=== PATIENT | female | born 1945 | race Caucasian/White ===

== ENCOUNTER 2017-05-09 18:17 | Inpatient (IN) | payer MEDICARE, OTHER ==
[~2017-05-09] VITALS: Ht 167.6 cm; Wt 104.1 kg
[2017-05-09] MEDS ORDERED: SODIUM CHLORIDE 0.9% 1,000 ML IV ONE (18:22)
[2017-05-09] MEDS ORDERED: IPRATROPIUM BROM 0.5 MG/2.5ML INH SOL HHN ONE (18:30)
[2017-05-09] MEDS ORDERED: ALBUTEROL SULF 2.5 MG/0.5ML(0.5%) NEB SOLN HHN ONE (18:30)
[2017-05-09] MEDS ORDERED: methylPREDNISolone SOD SUCC 125 MG/2 ML VL IV ONE (18:30)
[2017-05-09] MEDS ORDERED: NITROGLYCERIN 0.4 MG SL TAB SL ONE ×2 (18:45→19:15)
[2017-05-09] MEDS ORDERED: LORazepam 2MG/ML-1ML VIAL IV ONE ×2 (18:45→21:30)
[2017-05-09] MEDS ORDERED: FUROSEMIDE 40 MG/4 ML VIAL ONE (19:08)
[2017-05-09 19:09] LABS: Basophils # (auto) 0 uL; Basophils % (auto) 0.3 % (0.0-2.0); Eosinophils # (auto) 0.2 uL; Eosinophils % (auto) 1.1 % (0.0-7.0); Hematocrit 45.7 % (36.0-46.0); Hemoglobin 14.4 g/dL (12.2-16.2); Lymphocytes # (auto) 7.4 uL; Lymphocytes % (auto) 49.4 % (10.0-50.0); Mean Corpuscular Hemoglobin 30.7 pg (28.0-32.0); Mean Corpuscular Hgb Conc. 31.6 g/dL (32.0-36.0); Mean Corpuscular Volume 96.9 fL (80.0-100.0); Monocytes # (auto) 1.1 uL; Monocytes % (auto) 7.4 % (0.0-12.0); Neutrophils # (auto) 6.3 uL; Neutrophils % (auto) 41.8 % (37.0-80.0); Nucleated Red Blood Cells % 0.1 %; Platelet Count (auto) 331 10^3/uL (140-450); Red Blood Cells 4.71 10^6/uL (4.0-5.20); Red Cell Distribution Width 14.9 % (11.8-14.3)
[2017-05-09 19:27] LABS: Albumin 2.9 g/dL (3.4-5.0); BUN/Creatinine Ratio 13.5; Calcium 8.6 mg/dL (8.5-10.1); Magnesium 2.1 mg/dL (1.6-2.6); Potassium 4.7 mmol/L (3.5-5.1)
[2017-05-09 19:29] LABS: Lactic Acid w/Reflex 6.4 mmol/L (0.4-2.0)
[2017-05-09 19:32] LABS: Bilirubin, Total 0.3 mg/dL (0.2-1.0); Total Protein 7.5 g/dL (6.4-8.2)
[2017-05-09] MEDS ORDERED: LEVOFLOXACIN 500MG 100 ML IV ONE (20:00)
[2017-05-09] MEDS ORDERED: MORPHINE SULF INJ 2 MG/ML SYRINGE 1ML IV PRN (22:15)
[2017-05-09] MEDS ORDERED: ONDANSETRON HCL 4 MG/2 ML VIAL IV PRN (22:15)
[2017-05-09] MEDS ORDERED: ACETAMINOPHEN 325 MG TAB PO PRN (22:15)
[2017-05-09] MEDS ORDERED: HYDROcodone-ACET 5/325MG TAB PO PRN (22:15)
[2017-05-09 22:41] VITALS: BP 106/76
[2017-05-09 22:46] VITALS: BP 106/76
[2017-05-09] MEDS ORDERED: FUROSEMIDE 20 MG/2 ML VIAL IV ONE (23:15)
[2017-05-09] MEDS ORDERED: ETOMIDATE (2MG/ML) 20ML VIAL IV ONE (23:45)
[2017-05-09] MEDS ORDERED: SUCCINYLCHOLINE CHLORIDE 20 MG/ML 10ML VIAL IV ONE (23:46)
[2017-05-09] MEDS ORDERED: LORazepam 2MG/ML-1ML VIAL ONE (23:49)
[2017-05-10] VITALS (15 sets, daily range): BP systolic 80–165; BP diastolic 50–90
[2017-05-10] MEDS ORDERED: MIDAZOLAM DRIP 100 mg/100mL NS 100 ML IV ONE (00:11)
[2017-05-10] MEDS ORDERED: fentaNYL Drip 2500mCg/250mlNS 250 ML IV ONE (00:26)
[2017-05-10] MEDS: fentaNYL Drip 2500mCg/250mlNS 250 ML IV SCH ×2 (00:34→17:14)
[2017-05-10] MEDS ORDERED: ETOMIDATE (2MG/ML) 20ML VIAL IV ONE (02:30)
[2017-05-10] MEDS ORDERED: SUCCINYLCHOLINE CHLORIDE 20 MG/ML 10ML VIAL IV ONE (02:30)
[2017-05-10] MEDS ORDERED: SODIUM BICARBONATE 8.4% INJ 50ML SYRINGE ONE (02:30)
[2017-05-10] MEDS ORDERED: MIDAZOLAM DRIP 100 mg/100mL NS 100 ML IV SCH (02:38)
[2017-05-10] MEDS ORDERED: SODIUM BICARBONATE 8.4 % INJ 50ML VIAL IV ONE (02:45)
[2017-05-10] MEDS: PROPOFOL 100 ML IV SCH (03:34)
[2017-05-10] MEDS ORDERED: NOREPINEPHRINE 8 MG/250ML KIT 250 ML IV ONE (03:34)
[2017-05-10] MEDS: NOREPINEPHRINE 8 MG/250ML KIT 250 ML IV SCH (03:35)
[2017-05-10] MEDS: PIPERACILLIN-TAZOB 3.375GM 50 ML IV SCH ×4 (04:42→17:45)
[2017-05-10] MEDS: methylPREDNISolone SOD SUCC 40 MG/ML VL IV SCH ×3 (06:00→22:02)
[2017-05-10] MEDS: IPRATROPIUM BROM 0.5 MG/2.5ML INH SOL NEB SCH ×4 (06:50→18:00)
[2017-05-10] MEDS: ALBUTEROL SULF 2.5 MG/0.5ML(0.5%) NEB SOLN NEB SCH ×4 (06:50→18:00)
[2017-05-10 07:57] LABS: Urine Bacteria MOD /hpf (None Seen); Urine Blood 3+ /uL (Negative); Urine Specific Gravity 1.024 (1.001-1.035); Urine WBC 20 /hpf (0 - 5); Urine WBC Clumps PRESENT /hpf (None Seen)
[2017-05-10 08:39] LABS: Basophils # (auto) 0 uL; Basophils % (auto) 0.1 % (0.0-2.0); Eosinophils # (auto) 0 uL; Hematocrit 39.9 % (36.0-46.0); Lymphocytes # (auto) 0.9 uL; Lymphocytes % (auto) 5.6 % (10.0-50.0); Mean Corpuscular Hemoglobin 30.8 pg (28.0-32.0); Mean Corpuscular Hgb Conc. 32.5 g/dL (32.0-36.0); Mean Corpuscular Volume 94.8 fL (80.0-100.0); Monocytes # (auto) 0.6 uL; Monocytes % (auto) 3.9 % (0.0-12.0); Neutrophils # (auto) 14.2 uL; Neutrophils % (auto) 90.4 % (37.0-80.0); Nucleated Red Blood Cells % 0.1 %; Platelet Count (auto) 245 10^3/uL (140-450); Red Blood Cells 4.21 10^6/uL (4.0-5.20); Red Cell Distribution Width 14.5 % (11.8-14.3); White Blood Cell 15.7 10^3/uL (4.4-10.8)
[2017-05-10 08:51] LABS: INR 0.98 (0.9-1.15); Partial Thromboplastin Time 25.9 sec (22.64-33.71); Prothrombin Time 10.7 sec (9.37-12.3)
[2017-05-10 09:15] LABS: Albumin 2.7 g/dL (3.4-5.0); BUN/Creatinine Ratio 22.2; Bilirubin, Total 0.3 mg/dL (0.2-1.0); Calcium 7.6 mg/dL (8.5-10.1); Potassium 4.1 mmol/L (3.5-5.1); Total Protein 6.8 g/dL (6.4-8.2)
[2017-05-10] MEDS ORDERED: FUROSEMIDE 40 MG/4 ML VIAL IV ONE (10:00)
[2017-05-10] MEDS ORDERED: ASPirin-EC 81 mg tab PO SCH (10:00)
[2017-05-10] MEDS ORDERED: LIDOCAINE 1% HCL (LOCAL ANESTH.) INJ 20ML MDV ID ONE (10:30)
[2017-05-10] MEDS: MIDAZOLAM DRIP 50 mg/50mL 50 ML IV SCH ×4 (12:10→22:03)
[2017-05-10] MEDS ORDERED: PANTOPRAZOLE 40 MG/10 ML VIAL IV ONE (15:00)
[2017-05-10] MEDS: SODIUM CHLORIDE 0.9% 1,000 ML IV SCH (15:21)
[2017-05-10] MEDS: ENOXAPARIN SOD 40 MG/0.4 ML SYRINGE SC SCH (15:22)
[2017-05-10] MEDS: SODIUM CHLOR 0.9% PF (SALINE LOCK) 10ML VIAL IV SCH (19:53)
[2017-05-10] MEDS ORDERED: ATORVASTATIN 20 MG TAB PO SCH (22:00)
[2017-05-10] MEDS: ATORVASTATIN 20 MG TAB PO SCH (22:02)
[2017-05-11] VITALS (105 sets, daily range): BP systolic 95–139; BP diastolic 45–74
[2017-05-11] MEDS: IPRATROPIUM BROM 0.5 MG/2.5ML INH SOL NEB SCH ×4 (00:06→18:18)
[2017-05-11] MEDS: ALBUTEROL SULF 2.5 MG/0.5ML(0.5%) NEB SOLN NEB SCH ×4 (00:06→18:18)
[2017-05-11] MEDS: PIPERACILLIN-TAZOB 3.375GM 50 ML IV SCH ×4 (00:27→18:03)
[2017-05-11] MEDS: MIDAZOLAM DRIP 50 mg/50mL 50 ML IV SCH ×2 (01:59→08:00)
[2017-05-11] MEDS: NOREPINEPHRINE 8 MG/250ML KIT 250 ML IV SCH ×2 (03:34→22:00)
[2017-05-11] MEDS: PROPOFOL 100 ML IV SCH (03:34)
[2017-05-11] MEDS: SODIUM CHLORIDE 0.9% 1,000 ML IV SCH ×2 (04:51→17:40)
[2017-05-11 05:18] LABS: Basophils # (auto) 0 uL; Basophils % (auto) 0.1 % (0.0-2.0); Eosinophils # (auto) 0 uL; Hematocrit 29.2 % (36.0-46.0); Hemoglobin 9.6 g/dL (12.2-16.2); Lymphocytes # (auto) 0.7 uL; Lymphocytes % (auto) 6.3 % (10.0-50.0); Mean Corpuscular Hemoglobin 31.3 pg (28.0-32.0); Mean Corpuscular Hgb Conc. 32.8 g/dL (32.0-36.0); Mean Corpuscular Volume 95.2 fL (80.0-100.0); Monocytes # (auto) 0.5 uL; Monocytes % (auto) 4.8 % (0.0-12.0); Neutrophils # (auto) 9.8 uL; Neutrophils % (auto) 88.8 % (37.0-80.0); Platelet Count (auto) 184 10^3/uL (140-450); Red Blood Cells 3.07 10^6/uL (4.0-5.20); Red Cell Distribution Width 14.8 % (11.8-14.3); White Blood Cell 11.1 10^3/uL (4.4-10.8)
[2017-05-11] MEDS: methylPREDNISolone SOD SUCC 40 MG/ML VL IV SCH ×3 (05:52→22:05)
[2017-05-11 05:58] LABS: BUN/Creatinine Ratio 32.1; Bilirubin, Total 0.3 mg/dL (0.2-1.0); Calcium 6.1 mg/dL (8.5-10.1); Magnesium 1.6 mg/dL (1.6-2.6); Potassium 3.2 mmol/L (3.5-5.1)
[2017-05-11] MEDS: fentaNYL Drip 2500mCg/250mlNS 250 ML IV SCH ×2 (05:58→20:41)
[2017-05-11] MEDS ORDERED: POTASSIUM CHL 10% (20 MEQ/15ML) 15ml ORAL SOLN PO ONE (07:00)
[2017-05-11] MEDS ORDERED: CLON0.3D4 PO (09:26)
[2017-05-11] MEDS ORDERED: EST0625T PO (09:26)
[2017-05-11] MEDS ORDERED: OME20T PO (09:26)
[2017-05-11] MEDS ORDERED: ASPI325T4 PO (09:26)
[2017-05-11] MEDS ORDERED: FLUO-125 PO (09:26)
[2017-05-11] MEDS ORDERED: ARIP1TAB7 PO (09:26)
[2017-05-11] MEDS ORDERED: ALBU1AER4 IN (09:26)
[2017-05-11] MEDS ORDERED: TIOT1AER2 IN (09:26)
[2017-05-11] MEDS ORDERED: IPRAAER6 IN (09:26)
[2017-05-11] MEDS ORDERED: METO-159 PO (09:26)
[2017-05-11] MEDS ORDERED: ATOR20TA50 PO (09:26)
[2017-05-11] MEDS ORDERED: FLUT250M2 INH (09:26)
[2017-05-11] MEDS ORDERED: SPIR25TA89 PO (09:26)
[2017-05-11] MEDS ORDERED: LOSA100T27 PO (09:26)
[2017-05-11] MEDS ORDERED: METH10DI2 PO (09:26)
[2017-05-11] MEDS: SODIUM CHLOR 0.9% PF (SALINE LOCK) 10ML VIAL IV SCH (10:09)
[2017-05-11] MEDS: PANTOPRAZOLE 40 MG/10 ML VIAL IV SCH (10:09)
[2017-05-11] MEDS: ENOXAPARIN SOD 40 MG/0.4 ML SYRINGE SC SCH (10:10)
[2017-05-11] MEDS: MAGNESIUM SULFATE 1GM/100ML 100 ML IV SCH ×2 (12:21→12:57)
[2017-05-11] MEDS: ATORVASTATIN 20 MG TAB PO SCH (22:05)
[2017-05-12] VITALS (108 sets, daily range): BP systolic 103–156; BP diastolic 40–96
[2017-05-12] MEDS ORDERED: LORazepam 2MG/ML-1ML VIAL ONE (00:02)
[2017-05-12] MEDS ORDERED: AMIODARONE HCL (50 MG/ ML) 3 ML VIAL IV ONE (00:03)
[2017-05-12] MEDS ORDERED: AMIODARONE HCL 900 MG IV ONE (00:03)
[2017-05-12] MEDS ORDERED: AMIODARONE HCL 900 MG in DEXTROSE 500 ML IV SCH (00:12)
[2017-05-12] MEDS ORDERED: AMIODARONE HCL 150 MG in D5W 5% 100 ML IV ONE (00:15)
[2017-05-12] MEDS: IPRATROPIUM BROM 0.5 MG/2.5ML INH SOL NEB SCH ×4 (00:25→18:45)
[2017-05-12] MEDS: PROPOFOL 100 ML IV SCH (03:34)
[2017-05-12 04:42] LABS: Basophils # (auto) 0 uL; Basophils % (auto) 0.1 % (0.0-2.0); Eosinophils # (auto) 0 uL; Hematocrit 33.7 % (36.0-46.0); Hemoglobin 11.1 g/dL (12.2-16.2); Lymphocytes # (auto) 0.6 uL; Lymphocytes % (auto) 4.2 % (10.0-50.0); Mean Corpuscular Hemoglobin 31.3 pg (28.0-32.0); Mean Corpuscular Hgb Conc. 32.8 g/dL (32.0-36.0); Mean Corpuscular Volume 95.3 fL (80.0-100.0); Monocytes # (auto) 0.7 uL; Monocytes % (auto) 4.8 % (0.0-12.0); Neutrophils # (auto) 12.4 uL; Neutrophils % (auto) 90.9 % (37.0-80.0); Platelet Count (auto) 221 10^3/uL (140-450); Red Blood Cells 3.54 10^6/uL (4.0-5.20); Red Cell Distribution Width 14.8 % (11.8-14.3); White Blood Cell 13.6 10^3/uL (4.4-10.8)
[2017-05-12 05:11] LABS: BUN/Creatinine Ratio 31.3; Calcium 7.6 mg/dL (8.5-10.1)
[2017-05-12] MEDS: ALBUTEROL SULF 2.5 MG/0.5ML(0.5%) NEB SOLN NEB SCH ×4 (05:38→18:45)
[2017-05-12] MEDS: PIPERACILLIN-TAZOB 3.375GM 50 ML IV SCH ×4 (06:00→18:00)
[2017-05-12] MEDS: methylPREDNISolone SOD SUCC 40 MG/ML VL IV SCH ×3 (06:00→22:40)
[2017-05-12] MEDS: AMIODARONE HCL 900 MG in DEXTROSE 500 ML IV SCH (06:12)
[2017-05-12] MEDS: SODIUM CHLORIDE 0.9% 1,000 ML IV SCH ×2 (07:00→20:20)
[2017-05-12] MEDS: PANTOPRAZOLE 40 MG/10 ML VIAL IV SCH (10:00)
[2017-05-12] MEDS: ENOXAPARIN SOD 40 MG/0.4 ML SYRINGE SC SCH (10:00)
[2017-05-12 10:53] LABS: INR 0.97 (0.9-1.15); Partial Thromboplastin Time 23.4 sec (22.64-33.71); Prothrombin Time 10.6 sec (9.37-12.3)
[2017-05-12] MEDS: LORazepam 2MG/ML-1ML VIAL IV PRN (11:40)
[2017-05-12] MEDS ORDERED: Nutren Pulmonary 1 Liter GT SCH (14:00)
[2017-05-12] MEDS: MIDAZOLAM DRIP 50 mg/50mL 50 ML IV SCH ×2 (14:00→16:30)
[2017-05-12] MEDS ORDERED: VANCOMYCIN PER PHARMACY 0 MG IV SCH (14:00)
[2017-05-12] MEDS: DILTIAZEM HCL 60 MG TAB GT SCH ×2 (14:43→22:40)
[2017-05-12] MEDS: VANCOMYCIN 1,250 MG in D5W 5% 250 ML IV SCH (15:24)
[2017-05-12] MEDS: fentaNYL Drip 2500mCg/250mlNS 250 ML IV SCH (16:30)
[2017-05-12] MEDS ORDERED: DEXTROSE (50%) 50ML SYRG IV PRN (18:30)
[2017-05-12] MEDS: InsuLIN REG 1unit/0.01ml Soln (100units/ml) SC SCH (22:00)
[2017-05-12] MEDS: ACCU-CHEK COMFORT CURVE STRIP VI SCH (22:00)
[2017-05-12] MEDS: ATORVASTATIN 20 MG TAB PO SCH (22:41)
[2017-05-13] VITALS (91 sets, daily range): BP systolic 115–184; BP diastolic 55–105
[2017-05-13] MEDS: ALBUTEROL SULF 2.5 MG/0.5ML(0.5%) NEB SOLN NEB SCH ×4 (00:25→18:45)
[2017-05-13] MEDS: IPRATROPIUM BROM 0.5 MG/2.5ML INH SOL NEB SCH ×4 (00:25→18:45)
[2017-05-13] MEDS: PIPERACILLIN-TAZOB 3.375GM 50 ML IV SCH ×4 (00:49→17:35)
[2017-05-13] MEDS: VANCOMYCIN 1,250 MG in D5W 5% 250 ML IV SCH ×2 (03:11→15:00)
[2017-05-13] MEDS: PROPOFOL 100 ML IV SCH (03:34)
[2017-05-13] MEDS: NOREPINEPHRINE 8 MG/250ML KIT 250 ML IV SCH (03:34)
[2017-05-13 04:24] LABS: Basophils # (auto) 0 uL; Basophils % (auto) 0.1 % (0.0-2.0); Eosinophils # (auto) 0 uL; Hemoglobin 9.6 g/dL (12.2-16.2); Lymphocytes # (auto) 0.6 uL; Lymphocytes % (auto) 6.7 % (10.0-50.0); Mean Corpuscular Hgb Conc. 33.1 g/dL (32.0-36.0); Mean Corpuscular Volume 96.5 fL (80.0-100.0); Monocytes # (auto) 0.3 uL; Monocytes % (auto) 3.8 % (0.0-12.0); Neutrophils # (auto) 7.8 uL; Neutrophils % (auto) 89.4 % (37.0-80.0); Platelet Count (auto) 173 10^3/uL (140-450); Red Blood Cells 3.01 10^6/uL (4.0-5.20); White Blood Cell 8.7 10^3/uL (4.4-10.8)
[2017-05-13 04:40] LABS: BUN/Creatinine Ratio 37.8; Potassium 3.7 mmol/L (3.5-5.1)
[2017-05-13] MEDS: MIDAZOLAM DRIP 50 mg/50mL 50 ML IV SCH (05:26)
[2017-05-13] MEDS: AMIODARONE HCL 900 MG in DEXTROSE 500 ML IV SCH (06:12)
[2017-05-13] MEDS: methylPREDNISolone SOD SUCC 40 MG/ML VL IV SCH ×2 (06:26→22:00)
[2017-05-13] MEDS: DILTIAZEM HCL 60 MG TAB GT SCH ×3 (06:26→22:00)
[2017-05-13] MEDS: InsuLIN REG 1unit/0.01ml Soln (100units/ml) SC SCH ×4 (07:00→22:00)
[2017-05-13] MEDS: ACCU-CHEK COMFORT CURVE STRIP VI SCH ×4 (07:00→22:00)
[2017-05-13] MEDS: SODIUM CHLORIDE 0.9% 1,000 ML IV SCH ×2 (09:40→21:00)
[2017-05-13] MEDS: PANTOPRAZOLE 40 MG/10 ML VIAL IV SCH (10:00)
[2017-05-13] MEDS: ENOXAPARIN SOD 40 MG/0.4 ML SYRINGE SC SCH (10:00)
[2017-05-13] MEDS ORDERED: FLUoxetine HCL 20 MG CAP PO ONE (13:15)
[2017-05-13] MEDS: ASPirin 81 mg TAB GT SCH (14:17)
[2017-05-13] MEDS: fentaNYL Drip 2500mCg/250mlNS 250 ML IV SCH (20:45)
[2017-05-13] MEDS: ATORVASTATIN 20 MG TAB PO SCH (22:00)
[2017-05-14] VITALS (67 sets, daily range): BP systolic 117–191; BP diastolic 53–106
[2017-05-14] MEDS: PIPERACILLIN-TAZOB 3.375GM 50 ML IV SCH ×4 (00:23→18:30)
[2017-05-14] MEDS: ALBUTEROL SULF 2.5 MG/0.5ML(0.5%) NEB SOLN NEB SCH ×4 (00:24→18:34)
[2017-05-14] MEDS: IPRATROPIUM BROM 0.5 MG/2.5ML INH SOL NEB SCH ×4 (00:24→18:34)
[2017-05-14] MEDS: VANCOMYCIN 1,250 MG in D5W 5% 250 ML IV SCH ×3 (03:00→22:48)
[2017-05-14] MEDS: PROPOFOL 100 ML IV SCH (03:34)
[2017-05-14 03:56] LABS: Basophils # (auto) 0 uL; Eosinophils # (auto) 0 uL; Hematocrit 31.1 % (36.0-46.0); Hemoglobin 10.2 g/dL (12.2-16.2); Lymphocytes # (auto) 0.6 uL; Lymphocytes % (auto) 8.1 % (10.0-50.0); Mean Corpuscular Hemoglobin 31.4 pg (28.0-32.0); Mean Corpuscular Volume 95.3 fL (80.0-100.0); Monocytes # (auto) 0.3 uL; Monocytes % (auto) 4.2 % (0.0-12.0); Neutrophils # (auto) 6.3 uL; Neutrophils % (auto) 87.7 % (37.0-80.0); Nucleated Red Blood Cells % 0.1 %; Platelet Count (auto) 186 10^3/uL (140-450); Red Blood Cells 3.26 10^6/uL (4.0-5.20); Red Cell Distribution Width 14.7 % (11.8-14.3); White Blood Cell 7.2 10^3/uL (4.4-10.8)
[2017-05-14 04:14] LABS: BUN/Creatinine Ratio 39.7; Calcium 7.8 mg/dL (8.5-10.1); Magnesium 2.8 mg/dL (1.6-2.6)
[2017-05-14] MEDS: DILTIAZEM HCL 60 MG TAB GT SCH ×3 (06:00→22:34)
[2017-05-14] MEDS: InsuLIN REG 1unit/0.01ml Soln (100units/ml) SC SCH ×4 (07:00→22:00)
[2017-05-14] MEDS: ACCU-CHEK COMFORT CURVE STRIP VI SCH ×4 (07:00→22:00)
[2017-05-14] MEDS: FLUoxetine HCL 20 MG CAP PO SCH (09:40)
[2017-05-14] MEDS: ABILIFY 5MG PO SCH (09:40)
[2017-05-14] MEDS: ASPirin 81 mg TAB GT SCH (09:40)
[2017-05-14] MEDS: methylPREDNISolone SOD SUCC 40 MG/ML VL IV SCH ×2 (09:40→22:34)
[2017-05-14] MEDS: PANTOPRAZOLE 40 MG/10 ML VIAL IV SCH (09:40)
[2017-05-14] MEDS: ENOXAPARIN SOD 40 MG/0.4 ML SYRINGE SC SCH (09:41)
[2017-05-14] MEDS: SODIUM CHLORIDE 0.9% 1,000 ML IV SCH (18:00)
[2017-05-14] MEDS: DEXMEDETOMIDINE HCL 400 MCG in D5W 5% 96 ML IV SCH (21:04)
[2017-05-14] MEDS: ATORVASTATIN 20 MG TAB PO SCH (22:34)
[2017-05-15] VITALS (70 sets, daily range): BP systolic 119–212; BP diastolic 52–117
[2017-05-15] MEDS: ALBUTEROL SULF 2.5 MG/0.5ML(0.5%) NEB SOLN NEB SCH ×4 (00:20→19:04)
[2017-05-15] MEDS: IPRATROPIUM BROM 0.5 MG/2.5ML INH SOL NEB SCH ×4 (00:20→19:04)
[2017-05-15] MEDS: PIPERACILLIN-TAZOB 3.375GM 50 ML IV SCH ×4 (00:32→17:45)
[2017-05-15] MEDS: SODIUM CHLORIDE 0.9% 1,000 ML IV SCH ×2 (01:40→15:00)
[2017-05-15] MEDS: PROPOFOL 100 ML IV SCH (03:34)
[2017-05-15 04:15] LABS: Basophils # (auto) 0 uL; Basophils % (auto) 0.1 % (0.0-2.0); Eosinophils # (auto) 0 uL; Hematocrit 30.3 % (36.0-46.0); Hemoglobin 10.1 g/dL (12.2-16.2); Lymphocytes # (auto) 0.7 uL; Lymphocytes % (auto) 7.6 % (10.0-50.0); Mean Corpuscular Hemoglobin 31.3 pg (28.0-32.0); Mean Corpuscular Hgb Conc. 33.3 g/dL (32.0-36.0); Mean Corpuscular Volume 94.1 fL (80.0-100.0); Monocytes # (auto) 0.3 uL; Neutrophils # (auto) 7.6 uL; Neutrophils % (auto) 88.3 % (37.0-80.0); Nucleated Red Blood Cells % 0.1 %; Platelet Count (auto) 180 10^3/uL (140-450); Red Blood Cells 3.22 10^6/uL (4.0-5.20); Red Cell Distribution Width 14.3 % (11.8-14.3); White Blood Cell 8.6 10^3/uL (4.4-10.8)
[2017-05-15 04:25] LABS: BUN/Creatinine Ratio 37.1; Bilirubin, Total 0.4 mg/dL (0.2-1.0); Calcium 6.9 mg/dL (8.5-10.1); Potassium 3.5 mmol/L (3.5-5.1); Total Protein 4.8 g/dL (6.4-8.2)
[2017-05-15] MEDS: DILTIAZEM HCL 60 MG TAB GT SCH ×3 (06:00→22:07)
[2017-05-15] MEDS: ACCU-CHEK COMFORT CURVE STRIP VI SCH ×4 (07:00→22:22)
[2017-05-15] MEDS: InsuLIN REG 1unit/0.01ml Soln (100units/ml) SC SCH ×4 (07:54→22:22)
[2017-05-15] MEDS: VANCOMYCIN 1,250 MG in D5W 5% 250 ML IV SCH ×2 (09:30→20:29)
[2017-05-15] MEDS: ENOXAPARIN SOD 40 MG/0.4 ML SYRINGE SC SCH (10:00)
[2017-05-15] MEDS: FLUoxetine HCL 20 MG CAP PO SCH (10:00)
[2017-05-15] MEDS: ASPirin 81 mg TAB GT SCH (10:00)
[2017-05-15] MEDS: methylPREDNISolone SOD SUCC 40 MG/ML VL IV SCH ×2 (10:00→22:10)
[2017-05-15] MEDS: PANTOPRAZOLE 40 MG/10 ML VIAL IV SCH (10:00)
[2017-05-15] MEDS: ABILIFY 5MG PO SCH (10:00)
[2017-05-15] MEDS ORDERED: HALOPERIDOL LACTATE 5 MG/ML INJ VIAL IM ONE (13:45)
[2017-05-15] MEDS: DEXMEDETOMIDINE HCL 400 MCG in D5W 5% 96 ML IV SCH ×2 (13:49→16:05)
[2017-05-15] MEDS: MIDAZOLAM HCL 1MG/1ML-2 ML VIAL IV PRN ×3 (17:47→21:46)
[2017-05-15] MEDS: LORazepam 2MG/ML-1ML VIAL IV PRN (21:18)
[2017-05-15] MEDS: HALOPERIDOL LACTATE 5 MG/ML INJ VIAL IM SCH (22:10)
[2017-05-15] MEDS: ATORVASTATIN 20 MG TAB PO SCH (22:11)
[2017-05-15] MEDS ORDERED: LORazepam 2MG/ML-1ML VIAL ONE (23:28)
[2017-05-16] VITALS (83 sets, daily range): BP systolic 135–216; BP diastolic 66–126
[2017-05-16] MEDS: IPRATROPIUM BROM 0.5 MG/2.5ML INH SOL NEB SCH ×4 (00:13→18:28)
[2017-05-16] MEDS: ALBUTEROL SULF 2.5 MG/0.5ML(0.5%) NEB SOLN NEB SCH ×4 (00:13→18:27)
[2017-05-16] MEDS: MIDAZOLAM HCL 1MG/1ML-2 ML VIAL IV PRN ×3 (00:23→04:30)
[2017-05-16] MEDS: PIPERACILLIN-TAZOB 3.375GM 50 ML IV SCH ×5 (00:29→23:40)
[2017-05-16 03:41] LABS: Basophils # (auto) 0 uL; Basophils % (auto) 0.1 % (0.0-2.0); Eosinophils # (auto) 0 uL; Hematocrit 30.7 % (36.0-46.0); Hemoglobin 10.2 g/dL (12.2-16.2); Lymphocytes # (auto) 0.5 uL; Lymphocytes % (auto) 4.9 % (10.0-50.0); Mean Corpuscular Hemoglobin 30.9 pg (28.0-32.0); Mean Corpuscular Volume 93.7 fL (80.0-100.0); Monocytes # (auto) 0.3 uL; Monocytes % (auto) 3.6 % (0.0-12.0); Neutrophils # (auto) 8.5 uL; Neutrophils % (auto) 91.4 % (37.0-80.0); Platelet Count (auto) 196 10^3/uL (140-450); Red Blood Cells 3.28 10^6/uL (4.0-5.20); Red Cell Distribution Width 14.3 % (11.8-14.3); White Blood Cell 9.3 10^3/uL (4.4-10.8)
[2017-05-16 04:07] LABS: BUN/Creatinine Ratio 36.7; Bilirubin, Total 0.6 mg/dL (0.2-1.0); Calcium 6.3 mg/dL (8.5-10.1); Total Protein 4.7 g/dL (6.4-8.2)
[2017-05-16] MEDS: SODIUM CHLORIDE 0.9% 1,000 ML IV SCH ×2 (04:20→13:30)
[2017-05-16] MEDS: LORazepam 2MG/ML-1ML VIAL IV PRN ×3 (04:21→20:59)
[2017-05-16] MEDS ORDERED: PROPOFOL 100 ML IV ONE (05:36)
[2017-05-16] MEDS: PROPOFOL 100 ML IV SCH ×2 (06:04→15:22)
[2017-05-16] MEDS: DILTIAZEM HCL 60 MG TAB GT SCH ×3 (06:05→21:45)
[2017-05-16] MEDS: ACCU-CHEK COMFORT CURVE STRIP VI SCH ×4 (06:50→22:10)
[2017-05-16] MEDS: InsuLIN REG 1unit/0.01ml Soln (100units/ml) SC SCH ×4 (06:51→22:00)
[2017-05-16] MEDS: DEXMEDETOMIDINE HCL 400 MCG in D5W 5% 96 ML IV SCH ×2 (08:20→08:21)
[2017-05-16] MEDS: VANCOMYCIN 1,250 MG in D5W 5% 250 ML IV SCH (09:01)
[2017-05-16] MEDS: ASPirin 81 mg TAB GT SCH (09:02)
[2017-05-16] MEDS: FLUoxetine HCL 20 MG CAP PO SCH (09:02)
[2017-05-16] MEDS: PANTOPRAZOLE 40 MG/10 ML VIAL IV SCH (09:02)
[2017-05-16] MEDS: methylPREDNISolone SOD SUCC 40 MG/ML VL IV SCH ×2 (09:02→21:49)
[2017-05-16] MEDS: ABILIFY 5MG PO SCH (09:02)
[2017-05-16] MEDS: ENOXAPARIN SOD 40 MG/0.4 ML SYRINGE SC SCH (10:00)
[2017-05-16] MEDS: HALOPERIDOL LACTATE 5 MG/ML INJ VIAL IM SCH ×2 (10:00→21:40)
[2017-05-16] MEDS ORDERED: LORazepam 2MG/ML-1ML VIAL ONE ×2 (12:57→23:54)
[2017-05-16] MEDS: POTASSIUM CHL 20MEQ/50ML 50 ML IV SCH ×2 (14:00→16:15)
[2017-05-16] MEDS: ENALAPRILAT 1.25 MG/ML-1ML VIAL IV PRN ×2 (16:15→22:12)
[2017-05-16] MEDS: METOPROLOL TARTRATE 1MG/1ML-5ML VIAL IV PRN (18:34)
[2017-05-16] MEDS ORDERED: LORazepam 0.5 MG TAB PO ONE (20:30)
[2017-05-16] MEDS: ATORVASTATIN 20 MG TAB PO SCH (21:45)
[2017-05-16] MEDS ORDERED: METOPROLOL TARTRATE 1MG/1ML-5ML VIAL IV ONE (23:52)
[2017-05-17] VITALS (31 sets, daily range): BP systolic 150–206; BP diastolic 60–107
[2017-05-17] MEDS ORDERED: LORazepam 2MG/ML-1ML VIAL IV ONE
[2017-05-17] MEDS: IPRATROPIUM BROM 0.5 MG/2.5ML INH SOL NEB SCH ×4 (00:07→18:48)
[2017-05-17] MEDS: ENALAPRILAT 1.25 MG/ML-1ML VIAL IV PRN (02:38)
[2017-05-17] MEDS ORDERED: hydrALAZINE HCL 20 MG/ML VL IV ONE (02:43)
[2017-05-17] MEDS ORDERED: hydrALAZINE HCL 20 MG/ML VL ONE (02:57)
[2017-05-17] MEDS: VANCOMYCIN 1,250 MG in D5W 5% 250 ML IV SCH ×2 (03:07→21:17)
[2017-05-17 04:15] LABS: BUN/Creatinine Ratio 27.8; Calcium 6.2 mg/dL (8.5-10.1)
[2017-05-17 04:21] LABS: Basophils # (auto) 0 uL; Basophils % (auto) 0.1 % (0.0-2.0); Eosinophils # (auto) 0 uL; Hematocrit 33.4 % (36.0-46.0); Lymphocytes # (auto) 0.5 uL; Lymphocytes % (auto) 3.4 % (10.0-50.0); Mean Corpuscular Hemoglobin 30.9 pg (28.0-32.0); Mean Corpuscular Hgb Conc. 32.9 g/dL (32.0-36.0); Mean Corpuscular Volume 93.9 fL (80.0-100.0); Monocytes # (auto) 0.6 uL; Monocytes % (auto) 4.2 % (0.0-12.0); Neutrophils # (auto) 13.6 uL; Neutrophils % (auto) 92.3 % (37.0-80.0); Platelet Count (auto) 287 10^3/uL (140-450); Red Blood Cells 3.56 10^6/uL (4.0-5.20); Red Cell Distribution Width 14.5 % (11.8-14.3); White Blood Cell 14.7 10^3/uL (4.4-10.8)
[2017-05-17] MEDS: METOPROLOL TARTRATE 1MG/1ML-5ML VIAL IV PRN (04:37)
[2017-05-17 04:47] LABS: Potassium 2.4 mmol/L (3.5-5.1)
[2017-05-17] MEDS ORDERED: METOPROLOL TARTRATE 1MG/1ML-5ML VIAL IV ONE ×3 (06:05→06:15)
[2017-05-17] MEDS ORDERED: POTASSIUM CHL 20MEQ/50ML 50 ML IV SCH (06:15)
[2017-05-17] MEDS: ALBUTEROL SULF 2.5 MG/0.5ML(0.5%) NEB SOLN NEB SCH ×4 (06:15→18:48)
[2017-05-17] MEDS: SODIUM CHLORIDE 0.9% 1,000 ML IV SCH (06:25)
[2017-05-17] MEDS: PIPERACILLIN-TAZOB 3.375GM 50 ML IV SCH ×4 (06:25→23:58)
[2017-05-17] MEDS: DILTIAZEM HCL 60 MG TAB GT SCH ×3 (06:44→22:00)
[2017-05-17] MEDS: ACCU-CHEK COMFORT CURVE STRIP VI SCH ×4 (06:59→22:00)
[2017-05-17] MEDS: InsuLIN REG 1unit/0.01ml Soln (100units/ml) SC SCH ×4 (06:59→22:00)
[2017-05-17] MEDS: FLUoxetine HCL 20 MG CAP PO SCH (09:25)
[2017-05-17] MEDS: methylPREDNISolone SOD SUCC 40 MG/ML VL IV SCH ×2 (09:25→22:00)
[2017-05-17] MEDS: PANTOPRAZOLE 40 MG/10 ML VIAL IV SCH (09:25)
[2017-05-17] MEDS: ENOXAPARIN SOD 40 MG/0.4 ML SYRINGE SC SCH (09:25)
[2017-05-17] MEDS: ASPirin 81 mg TAB GT SCH (09:25)
[2017-05-17] MEDS: ABILIFY 5MG PO SCH (10:49)
[2017-05-17] MEDS: LOSARTAN POTASSIUM 50 MG TAB PO SCH (10:50)
[2017-05-17] MEDS: METOPROLOL TARTRATE 50 MG TAB PO SCH ×2 (10:50→22:00)
[2017-05-17] MEDS ORDERED: ALPRAZolam 0.5 MG TAB PO PRN (11:15)
[2017-05-17] MEDS ORDERED: ALPRAZolam 0.5 MG TAB PO ONE (11:15)
[2017-05-17] MEDS ORDERED: POTASSIUM CHL 20MEQ/100ML 200 ML IV ONE (14:37)
[2017-05-17] MEDS ORDERED: cloNIDine HCL 0.1 MG TAB PO ONE (14:45)
[2017-05-17] MEDS: ATORVASTATIN 20 MG TAB PO SCH (22:00)
[2017-05-17] MEDS: cloNIDine HCL 0.1 MG TAB PO SCH (22:00)
[2017-05-18] VITALS (22 sets, daily range): BP systolic 100–147; BP diastolic 45–75
[2017-05-18] MEDS: IPRATROPIUM BROM 0.5 MG/2.5ML INH SOL NEB SCH ×4 (00:16→18:30)
[2017-05-18] MEDS: ALBUTEROL SULF 2.5 MG/0.5ML(0.5%) NEB SOLN NEB SCH ×4 (00:16→18:30)
[2017-05-18 04:54] LABS: Basophils # (auto) 0 uL; Basophils % (auto) 0.1 % (0.0-2.0); Eosinophils # (auto) 0 uL; Eosinophils % (auto) 0.1 % (0.0-7.0); Hematocrit 31.5 % (36.0-46.0); Hemoglobin 10.5 g/dL (12.2-16.2); Lymphocytes # (auto) 0.8 uL; Lymphocytes % (auto) 7.8 % (10.0-50.0); Mean Corpuscular Hemoglobin 31.3 pg (28.0-32.0); Mean Corpuscular Hgb Conc. 33.4 g/dL (32.0-36.0); Mean Corpuscular Volume 93.7 fL (80.0-100.0); Monocytes # (auto) 0.7 uL; Monocytes % (auto) 6.3 % (0.0-12.0); Neutrophils # (auto) 9.1 uL; Neutrophils % (auto) 85.7 % (37.0-80.0); Platelet Count (auto) 252 10^3/uL (140-450); Red Blood Cells 3.36 10^6/uL (4.0-5.20); Red Cell Distribution Width 14.4 % (11.8-14.3); White Blood Cell 10.6 10^3/uL (4.4-10.8)
[2017-05-18 05:14] LABS: BUN/Creatinine Ratio 32.4; Calcium 7.7 mg/dL (8.5-10.1); Potassium 4.2 mmol/L (3.5-5.1)
[2017-05-18] MEDS: DILTIAZEM HCL 60 MG TAB GT SCH ×3 (06:00→22:00)
[2017-05-18] MEDS: PIPERACILLIN-TAZOB 3.375GM 50 ML IV SCH ×2 (06:00→12:28)
[2017-05-18] MEDS: ACCU-CHEK COMFORT CURVE STRIP VI SCH ×4 (06:42→22:00)
[2017-05-18] MEDS: InsuLIN REG 1unit/0.01ml Soln (100units/ml) SC SCH ×4 (06:42→22:00)
[2017-05-18] MEDS: methylPREDNISolone SOD SUCC 40 MG/ML VL IV SCH ×2 (10:18→22:00)
[2017-05-18] MEDS: PANTOPRAZOLE 40 MG/10 ML VIAL IV SCH (10:18)
[2017-05-18] MEDS: ABILIFY 5MG PO SCH (10:22)
[2017-05-18] MEDS: ENOXAPARIN SOD 40 MG/0.4 ML SYRINGE SC SCH (10:22)
[2017-05-18] MEDS: LOSARTAN POTASSIUM 50 MG TAB PO SCH (10:23)
[2017-05-18] MEDS: FLUoxetine HCL 20 MG CAP PO SCH (10:24)
[2017-05-18] MEDS: cloNIDine HCL 0.1 MG TAB PO SCH ×2 (10:24→22:00)
[2017-05-18] MEDS: ASPirin 81 mg TAB GT SCH (10:25)
[2017-05-18] MEDS: METOPROLOL TARTRATE 50 MG TAB PO SCH ×2 (10:26→22:00)
[2017-05-18] MEDS: VANCOMYCIN 1,250 MG in D5W 5% 250 ML IV SCH (16:09)
[2017-05-18] MEDS: ATORVASTATIN 20 MG TAB PO SCH (22:00)
[2017-05-19] VITALS (9 sets, daily range): BP systolic 117–153; BP diastolic 58–111
[2017-05-19] MEDS: ALBUTEROL SULF 2.5 MG/0.5ML(0.5%) NEB SOLN NEB SCH ×4 (00:10→19:03)
[2017-05-19] MEDS: IPRATROPIUM BROM 0.5 MG/2.5ML INH SOL NEB SCH ×4 (00:11→19:03)
[2017-05-19] MEDS: PIPERACILLIN-TAZOB 3.375GM 50 ML IV SCH ×4 (00:15→17:55)
[2017-05-19] MEDS: DILTIAZEM HCL 60 MG TAB GT SCH (06:11)
[2017-05-19] MEDS: InsuLIN REG 1unit/0.01ml Soln (100units/ml) SC SCH ×4 (06:39→22:00)
[2017-05-19] MEDS: ACCU-CHEK COMFORT CURVE STRIP VI SCH ×4 (06:39→22:00)
[2017-05-19] MEDS: VANCOMYCIN 1,500 MG in D5W 5% 250 ML IV SCH (09:00)
[2017-05-19] MEDS: ABILIFY 5MG PO SCH (09:48)
[2017-05-19] MEDS: ASPirin 81 mg TAB GT SCH (09:48)
[2017-05-19] MEDS: methylPREDNISolone SOD SUCC 40 MG/ML VL IV SCH ×2 (09:48→22:00)
[2017-05-19] MEDS: PANTOPRAZOLE 40 MG/10 ML VIAL IV SCH (09:48)
[2017-05-19] MEDS: ENOXAPARIN SOD 40 MG/0.4 ML SYRINGE SC SCH (09:49)
[2017-05-19] MEDS: cloNIDine HCL 0.1 MG TAB PO SCH ×2 (09:49→22:00)
[2017-05-19] MEDS: LOSARTAN POTASSIUM 50 MG TAB PO SCH (09:49)
[2017-05-19] MEDS: FLUoxetine HCL 20 MG CAP PO SCH (09:49)
[2017-05-19] MEDS: METOPROLOL TARTRATE 50 MG TAB PO SCH ×2 (09:49→22:00)
[2017-05-19] MEDS ORDERED: LORazepam 2MG/ML-1ML VIAL IV PRN (11:00)
[2017-05-19] MEDS: HYDROcodone-ACET 5/325MG TAB PO PRN (11:30)
[2017-05-19] MEDS: DILTIAZEM HCL 60 MG TAB PO SCH ×2 (13:58→22:00)
[2017-05-19] MEDS: ATORVASTATIN 20 MG TAB PO SCH (22:00)
[2017-05-20] VITALS (7 sets, daily range): BP systolic 115–157; BP diastolic 56–81
[2017-05-20] MEDS: ALBUTEROL SULF 2.5 MG/0.5ML(0.5%) NEB SOLN NEB SCH ×5 (00:20→23:57)
[2017-05-20] MEDS: IPRATROPIUM BROM 0.5 MG/2.5ML INH SOL NEB SCH ×5 (00:20→23:58)
[2017-05-20] MEDS: PIPERACILLIN-TAZOB 3.375GM 50 ML IV SCH ×2 (00:28→06:01)
[2017-05-20] MEDS: VANCOMYCIN 1,500 MG in D5W 5% 250 ML IV SCH (03:08)
[2017-05-20 04:28] LABS: Basophils # (auto) 0 uL; Basophils % (auto) 0.1 % (0.0-2.0); Eosinophils # (auto) 0 uL; Eosinophils % (auto) 0.1 % (0.0-7.0); Hemoglobin 10.2 g/dL (12.2-16.2); Lymphocytes # (auto) 0.6 uL; Lymphocytes % (auto) 4.1 % (10.0-50.0); Mean Corpuscular Hemoglobin 30.8 pg (28.0-32.0); Mean Corpuscular Hgb Conc. 32.8 g/dL (32.0-36.0); Mean Corpuscular Volume 94.1 fL (80.0-100.0); Monocytes # (auto) 0.2 uL; Monocytes % (auto) 1.5 % (0.0-12.0); Neutrophils % (auto) 94.2 % (37.0-80.0); Platelet Count (auto) 247 10^3/uL (140-450); Red Cell Distribution Width 14.5 % (11.8-14.3); White Blood Cell 14.9 10^3/uL (4.4-10.8)
[2017-05-20 04:54] LABS: BUN/Creatinine Ratio 22.2; Calcium 8.2 mg/dL (8.5-10.1); Magnesium 2.3 mg/dL (1.6-2.6)
[2017-05-20] MEDS: DILTIAZEM HCL 60 MG TAB PO SCH ×3 (06:01→22:00)
[2017-05-20] MEDS: InsuLIN REG 1unit/0.01ml Soln (100units/ml) SC SCH ×4 (06:01→22:00)
[2017-05-20] MEDS: ACCU-CHEK COMFORT CURVE STRIP VI SCH ×4 (06:02→22:00)
[2017-05-20] MEDS: ASPirin 81 mg TAB GT SCH (10:01)
[2017-05-20] MEDS: PANTOPRAZOLE 40 MG/10 ML VIAL IV SCH (10:01)
[2017-05-20] MEDS: ENOXAPARIN SOD 40 MG/0.4 ML SYRINGE SC SCH (10:01)
[2017-05-20] MEDS: methylPREDNISolone SOD SUCC 40 MG/ML VL IV SCH (10:01)
[2017-05-20] MEDS: METOPROLOL TARTRATE 50 MG TAB PO SCH ×2 (10:02→22:00)
[2017-05-20] MEDS: FLUoxetine HCL 20 MG CAP PO SCH (10:02)
[2017-05-20] MEDS: cloNIDine HCL 0.1 MG TAB PO SCH ×2 (10:03→22:00)
[2017-05-20] MEDS: LOSARTAN POTASSIUM 50 MG TAB PO SCH (10:03)
[2017-05-20] MEDS: ABILIFY 5MG PO SCH (10:04)
[2017-05-20] MEDS: HYDROcodone-ACET 5/325MG TAB PO PRN ×2 (10:20→22:43)
[2017-05-20] MEDS: DOXYCYCLINE HYC 100MG/250ML 250 ML IV SCH ×2 (11:31→23:30)
[2017-05-20] MEDS: ATORVASTATIN 20 MG TAB PO SCH (22:00)
[2017-05-20] MEDS ORDERED: predniSONE 20 MG TAB PO ONE (22:00)
[2017-05-21] VITALS (7 sets, daily range): BP systolic 123–159; BP diastolic 54–72
[2017-05-21] MEDS: HYDROcodone-ACET 5/325MG TAB PO PRN ×2 (00:28→22:23)
[2017-05-21 04:33] LABS: Basophils # (auto) 0 uL; Basophils % (auto) 0.1 % (0.0-2.0); Eosinophils # (auto) 0 uL; Hematocrit 29.6 % (36.0-46.0); Hemoglobin 9.8 g/dL (12.2-16.2); Lymphocytes # (auto) 0.9 uL; Mean Corpuscular Hemoglobin 31.4 pg (28.0-32.0); Mean Corpuscular Hgb Conc. 33.2 g/dL (32.0-36.0); Mean Corpuscular Volume 94.7 fL (80.0-100.0); Monocytes # (auto) 0.7 uL; Monocytes % (auto) 4.7 % (0.0-12.0); Neutrophils # (auto) 13.8 uL; Neutrophils % (auto) 89.2 % (37.0-80.0); Platelet Count (auto) 251 10^3/uL (140-450); Red Blood Cells 3.13 10^6/uL (4.0-5.20); Red Cell Distribution Width 14.6 % (11.8-14.3); White Blood Cell 15.5 10^3/uL (4.4-10.8)
[2017-05-21] MEDS: InsuLIN REG 1unit/0.01ml Soln (100units/ml) SC SCH ×3 (06:14→22:00)
[2017-05-21] MEDS: DILTIAZEM HCL 60 MG TAB PO SCH ×3 (06:14→22:24)
[2017-05-21] MEDS: ACCU-CHEK COMFORT CURVE STRIP VI SCH ×4 (06:15→22:30)
[2017-05-21] MEDS: IPRATROPIUM BROM 0.5 MG/2.5ML INH SOL NEB SCH ×3 (06:45→19:02)
[2017-05-21] MEDS: ALBUTEROL SULF 2.5 MG/0.5ML(0.5%) NEB SOLN NEB SCH ×3 (06:45→19:02)
[2017-05-21] MEDS: FLUoxetine HCL 20 MG CAP PO SCH (10:24)
[2017-05-21] MEDS: predniSONE 20 MG TAB PO SCH (10:24)
[2017-05-21] MEDS: cloNIDine HCL 0.1 MG TAB PO SCH ×2 (10:25→22:00)
[2017-05-21] MEDS: PANTOPRAZOLE 40 MG TAB PO SCH (10:25)
[2017-05-21] MEDS: ASPirin 81 mg TAB GT SCH (10:26)
[2017-05-21] MEDS: ABILIFY 5MG PO SCH (10:27)
[2017-05-21] MEDS: ENOXAPARIN SOD 40 MG/0.4 ML SYRINGE SC SCH (10:28)
[2017-05-21] MEDS: LOSARTAN POTASSIUM 50 MG TAB PO SCH (11:35)
[2017-05-21] MEDS: DOXYCYCLINE HYC 100MG/250ML 250 ML IV SCH (11:36)
[2017-05-21] MEDS: METOPROLOL TARTRATE 50 MG TAB PO SCH ×2 (11:36→22:22)
[2017-05-21 15:37] LABS: % Iron Saturation 25.2 % (15-50)
[2017-05-21] MEDS: ATORVASTATIN 20 MG TAB PO SCH (22:25)
[2017-05-22] MEDS: IPRATROPIUM BROM 0.5 MG/2.5ML INH SOL NEB SCH ×2 (00:30→06:57)
[2017-05-22] MEDS: ALBUTEROL SULF 2.5 MG/0.5ML(0.5%) NEB SOLN NEB SCH ×2 (00:30→06:57)
[2017-05-22] MEDS: DOXYCYCLINE HYC 100MG/250ML 250 ML IV SCH ×2 (02:24→11:30)
[2017-05-22] MEDS: DILTIAZEM HCL 60 MG TAB PO SCH ×2 (05:10→14:00)
[2017-05-22 05:33] VITALS: BP 130/70
[2017-05-22] MEDS: ACCU-CHEK COMFORT CURVE STRIP VI SCH ×2 (05:56→11:54)
[2017-05-22] MEDS: InsuLIN REG 1unit/0.01ml Soln (100units/ml) SC SCH ×2 (06:01→11:30)
[2017-05-22 09:00] VITALS: BP 135/86
[2017-05-22 09:08] LABS: Basophils # (auto) 0 uL; Basophils % (auto) 0.2 % (0.0-2.0); Eosinophils # (auto) 0.1 uL; Hematocrit 33.5 % (36.0-46.0); Hemoglobin 10.9 g/dL (12.2-16.2); Lymphocytes # (auto) 3.4 uL; Lymphocytes % (auto) 22.4 % (10.0-50.0); Mean Corpuscular Hemoglobin 30.7 pg (28.0-32.0); Mean Corpuscular Hgb Conc. 32.6 g/dL (32.0-36.0); Mean Corpuscular Volume 94.3 fL (80.0-100.0); Monocytes # (auto) 1.1 uL; Monocytes % (auto) 7.1 % (0.0-12.0); Neutrophils # (auto) 10.5 uL; Neutrophils % (auto) 69.3 % (37.0-80.0); Nucleated Red Blood Cells % 0.1 %; Platelet Count (auto) 277 10^3/uL (140-450); Red Blood Cells 3.55 10^6/uL (4.0-5.20); Red Cell Distribution Width 15.1 % (11.8-14.3); White Blood Cell 15.1 10^3/uL (4.4-10.8)
[2017-05-22] MEDS ORDERED: SACC250C PO (09:29)
[2017-05-22] MEDS ORDERED: PANT40T PO (09:29)
[2017-05-22] MEDS ORDERED: DOXY-216 PO (09:29)
[2017-05-22] MEDS: ENOXAPARIN SOD 40 MG/0.4 ML SYRINGE SC SCH (10:00)
[2017-05-22] MEDS: cloNIDine HCL 0.1 MG TAB PO SCH (10:00)
[2017-05-22] MEDS: ASPirin 81 mg TAB GT SCH (10:26)
[2017-05-22] MEDS: PANTOPRAZOLE 40 MG TAB PO SCH (10:26)
[2017-05-22] MEDS: METOPROLOL TARTRATE 50 MG TAB PO SCH (10:26)
[2017-05-22] MEDS: predniSONE 20 MG TAB PO SCH (10:26)
[2017-05-22] MEDS: FLUoxetine HCL 20 MG CAP PO SCH (10:26)
[2017-05-22] MEDS: LOSARTAN POTASSIUM 50 MG TAB PO SCH (10:27)
[2017-05-22] MEDS: ABILIFY 5MG PO SCH (10:28)
[2017-05-22] MEDS ORDERED: ONDANSETRON HCL 4 MG/2 ML VIAL IV PRN (11:00)
[2017-05-22] MEDS ORDERED: ACETAMINOPHEN 325 MG TAB PO PRN (11:00)
[2017-05-22] MEDS ORDERED: DIL60T PO (11:07)
[2017-05-22] MEDS ORDERED: CLO01T PO (11:07)
[2017-05-22 11:44] VITALS: BP 135/86
[2017-05-22] MEDS ORDERED: ALBUTEROL SULF 2.5 MG/0.5ML(0.5%) NEB SOLN NEB SCH (12:00)
[2017-05-22] MEDS ORDERED: IPRATROPIUM BROM 0.5 MG/2.5ML INH SOL NEB SCH (12:00)
[2017-05-22 13:03] VITALS: BP 132/60
== END 2017-05-22 14:40 | disposition home health service (06) | DRG 870 ==
LOC: ER 18:17 → TELE 18:18 → ICU WEST 05-10 23:09 → TELE-WESTW 05-21 17:09
PROVIDERS: ADMIT Nurse Practitioner Family; ATTEND Internal Medicine
PROC: 5A09357 Assistance with Respiratory Ventilation, Less than 24 Consecutive Hours, Continuous Positive Airway Pressure (ICD-10-PCS; 2017-05-09)
PROC: 5A1955Z Respiratory Ventilation, Greater than 96 Consecutive Hours (ICD-10-PCS; principal; 2017-05-10)
PROC: 0BH17EZ Insertion of Endotracheal Airway into Trachea, Via Natural or Artificial Opening (ICD-10-PCS; 2017-05-10)
PROC: 02HV33Z Insertion of Infusion Device into Superior Vena Cava, Percutaneous Approach (ICD-10-PCS; 2017-05-10)
DX: A41.02 Sepsis due to Methicillin resistant Staphylococcus aureus (principal); I21.A1 Myocardial infarction type 2; N17.0 Acute kidney failure with tubular necrosis; R65.21 Severe sepsis with septic shock; I50.33 Acute on chronic diastolic (congestive) heart failure; J18.0 Bronchopneumonia, unspecified organism; E44.0 Moderate protein-calorie malnutrition; G92 Toxic encephalopathy; J96.00 Acute respiratory failure, unspecified whether with hypoxia or hypercapnia; J96.01 Acute respiratory failure with hypoxia; J18.9 Pneumonia, unspecified organism; G93.1 Anoxic brain damage, not elsewhere classified; I11.0 Hypertensive heart disease with heart failure; I47.1 Supraventricular tachycardia; J44.0 Chronic obstructive pulmonary disease with (acute) lower respiratory infection; J44.1 Chronic obstructive pulmonary disease with (acute) exacerbation; N39.0 Urinary tract infection, site not specified; E87.6 Hypokalemia; F41.9 Anxiety disorder, unspecified; G47.50 Parasomnia, unspecified; I25.10 Atherosclerotic heart disease of native coronary artery without angina pectoris; I48.0 Paroxysmal atrial fibrillation; D63.8 Anemia in other chronic diseases classified elsewhere; T38.0X5A Adverse effect of glucocorticoids and synthetic analogues, initial encounter; D64.9 Anemia, unspecified; D86.9 Sarcoidosis, unspecified; E66.9 Obesity, unspecified; F32.9 Major depressive disorder, single episode, unspecified; R73.9 Hyperglycemia, unspecified; Z68.37 Body mass index [BMI] 37.0-37.9, adult; Z79.82 Long term (current) use of aspirin; Z82.49 Family history of ischemic heart disease and other diseases of the circulatory system
CPT/HCPCS: 36415; 36569; 36600; 51702; 70450; 71045; 71046; 71250; 80048; 80053; 80061; 80202; 81001; 82164; 82270; 82805; 82962; 83036; 83540; 83550; 83605; 83735; 83880; 84132; 84484; 85025; 85610; 85730; 87040; 87070; 87077; 87081; 87086; 87186; 87205; 87400; 87493; 93005; 93306; 94002; 94003; 94640; 94644; 94660; 95819; 96365; 96375; 97110; 97116; 97163; 97530; 99291; A4565; C9113; J0330; J1815; J1956; J2250; J2405; J2543; J2704; J3010; J3480; J3490; J7060